=== PATIENT | male | born 2000 | race Two or more races ===

== ENCOUNTER 2018-08-16 08:47 | Emergency (ER) | payer SELFPAY ==
[2018-08-16 08:53] VITALS: BP 136/89; PULSE 68; TEMP 98.6; BMI 22.1
[2018-08-16] MEDS ORDERED: KETOROLAC TROMETHAMINE 60 MG/2 ML VIAL IM ONE (09:29)
[2018-08-16] MEDS ORDERED: AMOXICILLIN 500 MG CAPSULE (FP) PO ONE (09:29)
[2018-08-16] MEDS ORDERED: KETOROLAC TROMETHAMINE 60 MG/2 ML VIAL ONE (09:33)
[2018-08-16] MEDS ORDERED: AMOXICILLIN 250 MG CAPSULE PO ONE (09:33)
[2018-08-16] MEDS ORDERED: AMOXICILLIN 250 MG CAPSULE ONE (09:34)
--- NOTE | 2018-08-16 09:34 | PDOC ---
History of Present Illness - General Chief Complaint: Toothache Stated Complaint: TOOTHACHE Time Seen by Provider: 08/16/18 09:21 History Source: Patient Exam Limitations: No Limitations - History of Present Illness Initial Comments: 08/16/18 09:34 Patient states had onset of dental decay last year while incarcerated, had issues with the left lower molar where was partially pulled but states this got significant EKG and other teeth including the right lower mid molar. It started crack last week, and used a dental pack to remove some of the fragments of that tooth and Tuesday. Since that time has had worsening pain, swelling and headache Timing/Duration: unsure Severity: moderate Associated Symptoms: reports: denies symptoms Past History - Travel Traveled outside of the country in the last 30 days: No Close contact w/someone who was outside of country & ill: No - Past Medical History Allergies/Adverse Reactions: Allergies Allergy/AdvReac Type Severity Reaction Status Date / Time No Known Allergies Allergy Verified 08/16/18 08:53 Home Medications: Ambulatory Orders Amoxicillin - [Amoxicillin 875mg Tablet -] 875 mg PO BID #14 tab 08/16/18 Naproxen [Naprosyn -] 500 mg PO BID #30 tablet 08/16/18 COPD: No - Surgical History Appendectomy: Yes - Suicide/Smoking/Psychosocial Hx Smoking History: Never smoked Information on smoking cessation initiated: No Drug/Substance Use Hx: Yes (Marijuana) Review of Systems - Review of Systems Able to Perform ROS?: Yes Is the patient limited Greek proficient: Yes Constitutional: Yes: Symptoms Reported, See HPI, Chills, Fever, Malaise HEENTM: Yes: Symptoms Reported, See HPI, Mouth Pain, Dental Problems Neurological: Yes: Symptoms reported, See HPI, Headache All Other Systems: Reviewed and Negative *Physical Exam - Vital Signs Last Vital Signs Temp Pulse Resp BP Pulse Ox 98.6 F 68 18 136/89 99 08/16/18 08:50 08/16/18 08:50 08/16/18 08:50 08/16/18 08:50 08/16/18 08:50 - Physical Exam General Appearance: Yes: Nourished, Appropriately Dressed, Apparent Distress, Mild Distress, Moderate Distress HEENT: positive: YUN, TMs Normal, Pharynx Normal, Other (both lower middle molars decayed to gingival surface. Has some swelling without abscess noted to the right lower molar which is site of tenderness. Range of motion is limited secondary to pain and lymphadenopathy.). negative: Normal ENT Inspection Neck: positive: Tender, Supple, Lymphadenopathy (R), Lymphadenopathy (L) Respiratory/Chest: positive: Lungs Clear, Normal Breath Sounds Integumentary: positive: Normal Color, Dry, Warm Neurologic: positive: fixture maker II-XII NML intact, Fully Oriented, Alert, Normal Mood/ Affect, Normal Response, Motor Strength 5/5 Moderate Sedation - Procedure Monitoring Vital Signs: Procedure Monitoring Vital Signs Temperature 98.6 F 08/16/18 08:50 Pulse Rate 68 08/16/18 08:50 Respiratory Rate 18 08/16/18 08:50 Blood Pressure 136/89 08/16/18 08:50 O2 Sat by Pulse Oximetry (%) 99 08/16/18 08:50 Medical Decision Making - Medical Decision Making 08/16/18 09:32 Dental decay, will start amoxicillin and encourage patient to obtain dental appointment as soon as possible *DC/Admit/Observation/Transfer Diagnosis at time of Disposition: Toothache - Discharge Dispostion Disposition: HOME Condition at time of disposition: Stable Decision to Admit order: No - Referrals - Patient Instructions Printed Discharge Instructions: DI for Tooth Decay, DI for Dental Pain Additional Instructions: Rest, drink lots of fluids: Teas, water, soups Saltwater gargles/ keep mouth clean and rinse after each meal May use wet teabag for pain relief to area Avoid hard chewing foods, stick to ice cream, Jell-O, yogurt etc. Tylenol or Motrin for fever and pain Complete all medication as prescribed Seek dental appointment as soon as possible for evaluation of dental injury/pain Followup with private physician in one to 2 days as needed Return to emergency department for worsened symptoms, fevers, swelling to face or worsened pain Go to [facility] now to dental clinic to see if possible to obtain appointment today or tomorrow - Post Discharge Activity Forms/Work/School Notes: Back to Work
== END 2018-08-16 09:45 | disposition home or self-care (01) ==
LOC: JERFT 08:47
PROC: 3E0233Z Introduction of Anti-inflammatory into Muscle, Percutaneous Approach (ICD-10-PCS; principal; 2018-08-16)
DX: K08.89 Other specified disorders of teeth and supporting structures (principal)
CPT/HCPCS: 99281-25